=== PATIENT | male | born 1995 | race Asian ===

== ENCOUNTER 2017-11-03 19:44 | Emergency (ER) | payer OTHER ==
[~2017-11-03] VITALS: Ht 172.7 cm; Wt 89.1 kg
[2017-11-03 19:52] VITALS: BP 124/68; TEMP 98.2
[2017-11-03] MEDS ORDERED: AMOXICILLIN 8751 TAB PO (20:16)
[2017-11-03] MEDS ORDERED: PREDNISONE20 MG PO (20:16)
[2017-11-03 20:45] VITALS: PULSE 62
== END 2017-11-03 20:45 | disposition home or self-care (01) ==
LOC: COL.ER 19:44
DX: J32.9 Chronic sinusitis, unspecified (principal)
CPT/HCPCS: J7512